=== PATIENT | female | born 1985 | race Caucasian/White ===

== ENCOUNTER 2022-08-31 11:17 | Emergency (ER) | payer OTHER, SELFPAY ==
--- NOTE | 2022-08-31 11:41 | ED.NECK ---
HPI - Neck Pain/Injury General Chief Complaint: General Medical Stated Complaint: nerve pain from L neck to hand Time Seen by Provider: 08/31/22 11:46 Source: patient Mode of arrival: ambulatory Limitations: no limitations History of Present Illness HPI Narrative: 37 yo female with known cervical disc disease s/p surgery 3 years ago at [facility] who presents to the ER for evaluation of burning left arm pain for the last 3 days. She states the pain starts in her neck and radiates all the way down her arm to her thumb and 1st finger. No numbness, tingling or weakness in the LUE. No neck or arm injury. She has been taking ibuprofen without improvement. She has tried to contact her surgeon at [facility] but has been unable to. She states she is awaiting an outpaient MRI of the neck. MD complaint: neck pain and other (LUE burning pain) Onset (ago): day(s) (3) Place: home Radiation: left lateral, left shoulder and left upper extremity Severity: severe Quality: burning Duration: constant and progressively worsening Relieving factors: none Exacerbating factors: movement of extremity and movement of neck Context: unknown Associated symptoms: none Treatments prior to arrival: ibuprofen Related Data Previous Rx's Medication Instructions Recorded cyclobenzaprine 10 mg tablet 10 mg PO TID PRN muscle spasm #14 08/31/22 tabs lidocaine 5 % topical patch 1 patch topical DAILY #15 ea 08/31/22 prednisone 50 mg tablet 50 mg PO DAILY 5 days #5 tabs 08/31/22 Allergies Allergy/AdvReac Type Severity Reaction Status Date / Time No Known Allergies Allergy Verified 08/31/22 11:44 Review of Systems Review of Systems: Yes all other systems are reviewed and are negative [facility] Social History Social History Advance Directives: Yes Advance Directives Information Provided: No Advance Directives on File: No Physical Exam Vital Signs: Vital Signs: Last Vital Signs Temp 98.4 F 08/31/22 11:42 Pulse 94 08/31/22 11:42 Resp 18 08/31/22 11:42 BP 120/75 08/31/22 11:42 Pulse Ox 97 08/31/22 11:42 O2 Del Method 08/31/22 11:42 BMI result Body Mass Index 36.6 Appearance: Alert. Oriented X3. No acute distress. HEENT: normal inspection Neck: no midline tenderness, normal ROM, soft tissue tenderness of the left lateral neck CVS: Normal heart rate and rhythm. Pulses normal. Respiratory: No respiratory distress. Skin: Skin warm and dry. Normal skin color. Normal skin turgor. No rashes. Extremities: normal inspection x4, normal ROM of the left upper extremity, normal strength and sensation Neuro: Oriented X 3. No motor deficit. No sensory deficit. Medical Decision Making Medical Decision Making [facility] Narrative: 37 yo F, with a past medical history of chronic neck pain with C6-C7 disc replacement presenting today with left sided burning neck pain that radiates down her left arm. She states that she called [facility], as she was previously seen by Dr. Canada, who was her surgeon, but they have not returned her call. Exam and clinical presentation are c/w cervical radiculopathy - will treat with course of steroids, muscle relaxers. she will f/u with her surgeon and PCP Differential Diagnosis Differential Diagnoses: The differential diagnosis associated with the presentation includes cervical radiculopathy, nerve impingement, muscle strain/spasm, no evidence of shingles/dermatomal rash, no weakness to suggest CVA or central process Tests considered The following testing was considered but not selected: CT scan considered, but not required emergently. Prescription Management I considered prescription management with: Pain Medication Chronic Conditions Patient?s care impacted by: Other (cervical disc disease) Critical Care Time Critical Care Time Critical Care Time: No Discharge Plan Discharge Clinical Impression: Cervical radiculopathy Patient Disposition: Home, Self-Care Instructions: Cervical Radiculopathy (ED) Additional Instructions: Take prescribed medication as directed. Apply ice to your neck. Follow up with [facility] for further management of your pain. Follow up with your surgeon. If you develop new or worsening symptoms call 911 or come back to the ER for further evaluation. Prescriptions: New prednisone 50 mg tablet 50 mg PO DAILY 5 Days Qty: 5 0RF cyclobenzaprine 10 mg tablet 10 mg PO TID PRN (Reason: muscle spasm) Qty: 14 0RF lidocaine 5 % adhesive patch,medicated 1 patch topical DAILY Qty: 15 0RF Rx Instructions: leave on most painful area for up to 12 hrs Stand Alone Forms: Work/School Release Interventions: ED Discharge Assessment Last Done: 08/31/22 11:53 Discharge Date/Time: 08/31/22 11:55
[2022-08-31 11:42] VITALS: BP 120/75; PULSE 94; RESP 18; TEMP 36.9; O2SAT 97; BMI 36.6
== END 2022-08-31 11:55 | disposition home or self-care (01) ==
LOC: HO.ED 11:51
PROVIDERS: Emergency Provider Emergency Medicine
DX: M54.12 Radiculopathy, cervical region (principal)
CPT/HCPCS: 99282; 99283

== ENCOUNTER 2022-10-01 12:55 | Outpatient (REF) | payer OTHER, SELFPAY ==
--- NOTE | ~2022-10-01 | XR_ITS ---
EXAMINATION: XR cervical spine 4V CLINICAL INFORMATION: Pain COMPARISON: None TECHNIQUE: 4 views of the cervical spine were obtained. FINDINGS: The cervical spine is visualized to the level of C6 on the lateral view. Vertebral body alignment is maintained. No subluxation between flexion and extension views. Status post intervertebral disc spacer at C6/C7 Vertebral body heights are maintained XR/XR cervical spine 4V IMPRESSION: Status post intervertebral disc spacer at C6/C7. No subluxation between flexion and extension views.
== END 2022-10-01 12:56 | disposition home or self-care (01) ==
LOC: HO.HOSX 12:55
PROVIDERS: Visit Provider Physician Assistant
DX: M54.12 Radiculopathy, cervical region (principal)
CPT/HCPCS: 72050

== ENCOUNTER 2022-10-18 13:40 | Emergency (ER) | payer OTHER, SELFPAY ==
[2022-10-18 13:43] VITALS: BP 116/78; PULSE 104; RESP 18; TEMP 36.6; O2SAT 97; BMI 37.1
--- NOTE | 2022-10-18 13:43 | ED_ITS ---
HPI - General Adult General Chief complaint: Headache <SHAVON Delgado - Last Filed: 10/18/22 13:46> Stated complaint: severe migraine <SHAVON Delgado - Last Filed: 10/18/22 13:46> Time Seen by Provider: 10/18/22 19:31 <SHAVON Delgado - Last Filed: 10/18/22 13:46> Source: patient, RN notes reviewed and old records reviewed <Eduar Mao - Last Filed: 10/18/22 21:06> Mode of arrival: ambulatory <Eduar Mao - Last Filed: 10/18/22 21:06> Limitations: no limitations <Eduar Mao - Last Filed: 10/18/22 21:06> History of Present Illness HPI narrative: 37-year-old female with past medical history significant for cervical radiculopathy presents for evaluation of headache. Patient reports a ?migraine headache since yesterday. ? Patient reports a history of migraines. She states that she usually takes ibuprofen for this. Patient was started on Cymbalta 10 days ago and her doctor told her not to take ibuprofen with the Cymbalta She has been taking Tylenol for her pain with no relief She reports some light sensitivity and nausea. Denies any dizziness or vomiting Denies any trauma to head or neck <Eduar Mao - Last Filed: 10/18/22 21:06> Related Data Home medications: Previous Rx's Medication Instructions Recorded cyclobenzaprine 10 mg tablet 10 mg PO TID PRN muscle spasm #14 08/31/22 tabs lidocaine 5 % topical patch 1 patch topical DAILY #15 ea 08/31/22 prednisone 50 mg tablet 50 mg PO DAILY 5 days #5 tabs 08/31/22 ddejkfokhd-otclohedimbnw-slvryell 1 cap PO Q6H PRN headache #16 caps 10/18/22 50 mg-300 mg-40 mg capsule (Fioricet) <SHAVON Delgado Last Filed: 10/18/22 13:46> Allergies/adverse reactions: Allergies Allergy/AdvReac Type Severity Reaction Status Date / Time amitriptyline Allergy Migraine Verified 10/18/22 13:43 <SHAVON Delgado Last Filed: 10/18/22 13:46> Review of Systems Constitutional: Constitutional: Reports as per HPI, Denies chills, Denies fatigue, Denies fever(s) and Reports headache(s) <Eduar Mao - Last Filed: 10/18/22 21:06> ENT: Reports headache(s) <Eduar Mao - Last Filed: 10/18/22 21:06> Cardiovascular: Cardiovascular: Denies chest pain and Denies dyspnea <Eduar Mao - Last Filed: 10/18/22 21:06> Respiratory: Respiratory: Denies cough and Denies dyspnea <Eduar Mao - Last Filed: 10/18/22 21:06> Gastrointestinal: Gastrointestinal: Denies abdominal pain, Denies constipation, Reports nausea and Denies vomiting <Eduar Mao - Last Filed: 10/18/22 21:06> Genitourinary: Genitourinary: Denies dysuria <Eduar Mao - Last Filed: 10/18/22 21:06> Neurologic: Reports headache(s) and Denies focal weakness <Eduar Mao - Last Filed: 10/18/22 21:06> Endocrine: Endocrine: Denies fatigue <Eduar Mao - Last Filed: 3 21:06> [facility] Social History Social History: Social History Advance Directives: No Advance Directives Information Provided: No <SHAVON Delgado - Last Filed: 10/18/22 13:46> Physical Exam ED Vital Signs: Vital Signs - 24 hr 10/18/22 13:43 Temperature 98 F Pulse Rate 104 H Respiratory Rate 18 Blood Pressure 116/78 Pulse Oximetry 97 Oxygen Delivery Method Room Air BMI result Body Mass Index 37.1 <SHAVON Delgado - Last Filed: 10/18/22 13:46> Vital Signs - 24 hr 10/18/22 13:43 Temperature 98 F Pulse Rate 104 H Respiratory Rate 18 Blood Pressure 116/78 Pulse Oximetry 97 Oxygen Delivery Method Room Air BMI result Body Mass Index 37.1 <Eduar Mao - Last Filed: 10/18/22 21:06> Const General: healthy appearing, comfortable, no acute distress, alert and awake <Eduar BondElkins - Last Filed: 10/18/22 21:06> Nutritional Appearance: well nourished < Last Filed: 10/18/22 21:06> Orientation/consciousness: patient oriented x3 < Last Filed: 10/18/22 21:06> HENMT Head: Yes normocephalic and Yes atraumatic < Last Filed: 10/18/22 21:06> Eyes Eyelids: Yes eyelids normal < Last Filed: 10/18/22 21:06> Conjunctivae: conjunctivae normal < Last Filed: 10/18/22 21:06> Sclerae: sclerae normal < Last Filed: 10/18/22 21:06> Corneas: corneas normal < Last Filed: 10/18/22 21:06> Pupils: Equal, round and reactive pupils present < Last Filed: 10/18/22 21:06> EOM: EOMs intact bilaterally < Last Filed: 10/18/22 21:06> Neck Neck: Yes full ROM < Last Filed: 10/18/22 21:06> Resp Effort & Inspection: normal respiratory effort, able to speak in complete sentences and not labored < Last Filed: 10/18/22 21:06> Skin General skin exam: no rashes or lesions noted and elasticity normal < Last Filed: 10/18/22 21:06> Neuro General: patient oriented x3 < Last Filed: 10/18/22 21:06> Cranial nerves: Yes CN's II-XII intact bilaterally, Yes Equal, round and reactive pupils present and Yes Bilaterally intact EOM present < Last Filed: 10/18/22 21:06> Cognition (Neuro): normal cognition < Last Filed: 10/18/22 21:06> Extrem Other: Moving all extremities well without any obvious deformities <Eduar Mao - Last Filed: 10/18/22 21:06> Course Course Course Narrative: This is an RME: Additional HPI, ROS, PE not included below will be deferred to primary provider. 37-year-old female history of migraines presents for evaluation of migraine that started yesterday, with associated nausea & dizziness, tells me she was started on Cymbalta and has taken Tylenol with lit tle to no relief. Feels like her typical migraine, no visual disturbances. Physical exam benign. Neuro nonfocal. Ambulatory with steady gait normal coordination. Cerbellar intact. NIHSS 0 Plan medication <SHAVON Delgado - Last Filed: 10/18/22 13:46> Reevaluation(s) Reevaluation #1: Patient reports feeling much better after treatment will discharge her with Fioricet and she will follow up outpatient providers <Eduar Mao - Last Filed: 10/18/22 21:06> Time: 21:04 <Eduar Mao - Last Filed: 10/18/22 21:06> Medications Administered Discontinued Medications Generic Name Dose Route Start Last Admin Trade Name Freq PRN Reason Stop Dose Admin Diphenhydramine HCl 25 mg 10/18/22 13:42 10/18/22 19:48 Diphenhydramine Hcl 50 Mg/Ml Vial IVPUSH 10/18/22 13:43 25 mg ONCE ONE Administration Ketorolac Tromethamine 30 mg 10/18/22 13:42 10/18/22 19:48 Ketorolac Tromethamine 30 Mg/Ml Vial IM 10/18/22 13:43 30 mg ONCE ONE Administration Metoclopramide HCl 10 mg 10/18/22 13:42 10/18/22 19:49 Metoclopramide Hcl 10 Mg/2 Ml Vial IVPUSH 10/18/22 13:43 10 mg ONCE ONE Administration <SHAVON Delgado - Last Filed: 10/18/22 13:46> Medications Administered Discontinued Medications Generic Name Dose Route Start Last Admin Trade Name Freq PRN Reason Stop Dose Admin Diphenhydramine HCl 25 mg 10/18/22 13:42 10/18/22 19:48 Diphenhydramine Hcl 50 Mg/Ml Vial IVPUSH 10/18/22 13:43 25 mg ONCE ONE Administration Ketorolac Tromethamine 30 mg 10/18/22 13:42 10/18/22 19:48 Ketorolac Tromethamine 30 Mg/Ml Vial IM 10/18/22 13:43 30 mg ONCE ONE Administration Metoclopramide HCl 10 mg 10/18/22 13:42 10/18/22 19:49 Metoclopramide Hcl 10 Mg/2 Ml Vial IVPUSH 10/18/22 13:43 10 mg ONCE ONE Administration <Eduar Mao - Last Filed: 10/18/22 21:06> Medical Decision Making Medical Decision Making MDM Narrative: 37-year-old female with past medical history significant for cervical radiculopathy and migraine headaches presents for evaluation of headache. Her neurologic exam is reassuring. She has had previous CT imaging of the head. I do not see any indication for emergent imaging time. Will treat the patient's headache <Eduar Mao - Last Filed: 10/18/22 21:06> Differential Diagnosis Acute headache Tension headache Cluster headache Migraine headache <Eduar Mao - Last Filed: 10/18/22 21:06> Discharge Plan Discharge Clinical Impression: Headache <SHAVON Delgado - Last Filed: 10/18/22 13:46> Patient Disposition: Home, Self-Care <SHAVON Delgado - Last Filed: 10/18/22 13:46> Instructions: Acute Headache (ED) <SHAVON Delgado - Last Filed: 10/18/22 13:46> Additional Instructions: Take Fioricet as needed for severe headaches. Drink lots of fluids. Fioricet has Tylenol in it, so do not double up on Tylenol Follow-up with her primary doctor <SHAVON Delgado - Last Filed: 10/18/22 13:46> Prescriptions: New knimnetdhc-fbrufyupbaadu-dhrr [Fioricet] 50-300-40 mg capsule 1 cap PO Q6H PRN (Reason: headache) Qty: 16 0RF No Action prednisone 50 mg tablet 50 mg PO DAILY 5 Days Qty: 5 0RF cyclobenzaprine 10 mg tablet 10 mg PO TID PRN (Reason: muscle spasm) Qty: 14 0RF lidocaine 5 % adhesive patch,medicated 1 patch topical DAILY Qty: 15 0RF Rx Instructions: leave on most painful area for up to 12 hrs <SHAVON Delgado - Last Filed: 10/18/22 13:46>
[2022-10-18] MEDS: Ketorolac Tromethamine 30 MG/ML VIAL IM (19:48)
[2022-10-18] MEDS: diphenhydrAMINE HCL 50 MG/ML VIAL 25 MG IVPUSH (19:48)
[2022-10-18] MEDS: Metoclopramide HCl 10 MG/2 ML VIAL IVPUSH (19:49)
--- NOTE | 2022-10-18 20:58 | PC.NURSE ---
nurse called to room pt sts that she is feeling much better at this time, and would like to get home to her son. Provider made aware via tiger text
[2022-10-18 21:09] VITALS: BP 97/63; PULSE 68; RESP 16; O2SAT 98
== END 2022-10-18 21:13 | disposition home or self-care (01) ==
PROVIDERS: Emergency Provider Emergency Medicine
DX: R51.9 Headache, unspecified (principal); M54.12 Radiculopathy, cervical region; Z79.899 Other long term (current) drug therapy
CPT/HCPCS: 96372; 96374; 96375; 99284; J1200; J1885; J2765

== ENCOUNTER 2022-11-08 07:52 | Outpatient (REF) | payer OTHER, SELFPAY ==
--- NOTE | ~2022-11-08 | MR_ITS ---
MR CERVICAL SPINE WITHOUT IV CONTRAST CLINICAL INFORMATION: Cervical region radiculopathy. COMPARISON: Cervical spine radiographs 10/01/2022. TECHNIQUE: MRI of the cervical spine was obtained using routine sequences without contrast. FINDINGS: There is straightening of the cervical lordosis. The vertebral body heights are maintained. There is no bone marrow edema. There are no acute fractures. Craniocervical junction is unremarkable. Postoperative changes following interbody prosthesis placement at C6-C7. Significant artifact from the prosthesis device results in nondiagnostic assessment of the central canal, spinal cord, and neural foramina at the C6-C7 level. Partially imaged posterior fossa is unremarkable. There are are no cord signal changes. The cervical arterial flow voids are maintained. No significant extraspinal soft tissue findings. C2-C3: Posterior disc contour is normal. Bilateral facet arthropathy. There is no central canal stenosis and there is no foraminal stenosis C3-C4: Disc contour is normal. There is no central canal stenosis and there is no foraminal stenosis. C4-C5: Disc contour is normal. Bilateral facet arthropathy. No central canal stenosis and no foraminal stenosis. C5-C6: Posterior disc contour is normal. Bilateral facet arthropathy. No central canal stenosis and no foraminal stenosis. C6-C7: Interbody prosthesis placement at C6-C7. Significant artifact from the prosthesis device results in nondiagnostic assessment of the central canal, spinal cord, and neural foramina at the C6-C7 level. C7-T1: Disc contour is normal. There is no central canal stenosis and there is no foraminal stenosis. MR/MR cervical spine wo con IMPRESSION: - Postoperative changes following interbody prosthesis placement at C6-C7. Significant artifact from the prosthesis device results in nondiagnostic assessment of the central canal, spinal cord, and neural foramina at the C6-C7 level. - Mild spondylitic changes throughout the remainder of the cervical spine as described. No severe central canal stenosis and no severe foraminal stenosis within the cervical spine.
== END 2022-11-08 07:53 | disposition home or self-care (01) ==
LOC: HO.MRI 07:52
PROVIDERS: Visit Provider Physician Assistant
DX: M54.12 Radiculopathy, cervical region (principal)
CPT/HCPCS: 72141